=== PATIENT | male | born 1935 | race Asian ===

== ENCOUNTER 2022-08-11 10:44 | Emergency (ER) | payer OTHER, MEDICAID ==
[~2022-08-11] VITALS: Ht 177.8 cm; Wt 52.0 kg
== END 2022-08-11 11:41 ==
LOC: ER 10:44 → EDBD 10:44 → ER 11:41
DX: I46.9 Cardiac arrest, cause unspecified (principal); E78.5 Hyperlipidemia, unspecified; I10 Essential (primary) hypertension; R41.82 Altered mental status, unspecified; R06.89 Other abnormalities of breathing
CPT/HCPCS: 31500; 92950; 99291